=== PATIENT | female | born 1995 | race Caucasian/White ===

== ENCOUNTER → 2022-11-27 09:55 | Outpatient (CLI) | payer OTHER, SELFPAY ==
[2022-11-27 11:36] LABS: Glucose 102 mg/dL (70-100)
[2022-11-27 11:52] LABS: Follicle Stimulating Hormone 5.76 mIU/mL; Luteinizing Hormone 7.21 mIU/mL
[2022-11-29 15:58] LABS: Insulin Level Total 20.3 uIU/mL (2.6-24.9)
== END ==
PROVIDERS: Referring Provider Obstetrics & Gynecology; Visit Provider Obstetrics & Gynecology
DX: E28.2 Polycystic ovarian syndrome (principal)
CPT/HCPCS: 36415; 82947; 83001; 83002; 83525

== ENCOUNTER → 2023-07-07 08:01 | Outpatient (CLI) | payer OTHER, SELFPAY ==
[2023-07-07 08:56] LABS: Add Manual Diff / Slide Review NO; Basophils Absolute Auto 0 /uL (0-100); Basophils Percent Auto 0.6 % (0-2); Eosinophils Absolute Auto 100 /uL (0-450); Eosinophils Percent Auto 1.1 % (2-4); Hematocrit 37.8 % (36-46); Hemoglobin 12.5 g/dL (12.0-16.0); Lymphocytes Absolute Auto 1700 /uL (1100-4500); Lymphocytes Percent Auto 22.4 % (25-40); Mean Corpuscular HGB Conc 33.2 % (30-36); Mean Corpuscular Hemoglobin 25.6 PG (26-34); Monocytes Absolute Auto 400 /uL (0-900); Monocytes Percent Auto 4.9 % (3-14); Neutrophils Absolute Auto 5400 /uL (1500-7000); Platelet Count 220 X10^3/uL (150-400); Red Cell Distribution Width 13.8 % (11.6-14.8); White Blood Cell Count 7.6 X10^3/uL (4.5-11.0)
[2023-07-07 09:05] LABS: Hemoglobin A1C% w Est Avg Glu 5.7 % (4.0-6.0)
[2023-07-07 09:33] LABS: Natera Collection Specimen Collected
[2023-07-08 08:24] LABS: RPR Screen Non Reactive (Non Reactive)
[2023-07-08 09:07] LABS: Varicella IgG Antibody 657 index (Immune >165)
[2023-07-09 04:59] LABS: HIV 1 & 2 Ab/Ag 4th Gen Combo NEGATIVE (NEGATIVE); Hep C Virus Ab w/Reflex Quant NEGATIVE s/c (NEGATIVE); Hepatitis B Surface Antigen NEGATIVE s/c (NEGATIVE); Rubella Antibody IgG 63.3 IU/mL (>15)
== END ==
LOC: LAB 08:06
PROVIDERS: Referring Provider Obstetrics & Gynecology; Visit Provider Obstetrics & Gynecology
DX: Z34.81 Encounter for supervision of other normal pregnancy, first trimester (principal); Z3A.10 10 weeks gestation of pregnancy; E88.819 Insulin resistance, unspecified
CPT/HCPCS: 36415; 80055; 83036; 86787; 86803; 86850; 86900; 86901; 87077; 87086; 87186; 87389

== ENCOUNTER → 2023-08-29 10:22 | Outpatient (CLI) | payer OTHER, SELFPAY | PROVIDERS: Referring Provider Specialist; Visit Provider Specialist | DX: Z34.02 Encounter for supervision of normal first pregnancy, second trimester (principal); Z3A.17 17 weeks gestation of pregnancy | CPT/HCPCS: 36415; 82105 ==

== ENCOUNTER → 2023-09-17 12:47 | Outpatient (CLI) | payer OTHER, SELFPAY ==
--- NOTE | 2023-09-17 13:00 | DI.US.S_ITS ---
PROCEDURE: US OB >= 14 WEEKS FETUS INDICATIONS: 20 Week Anatomy Scan OUTSIDE/PRIOR DATING DATA: Last menstrual period (LMP): 04/22/2023. LMP-based estimated date of delivery (SENDY): 01/27/2024. First dating scan (date and location): 06/29/2023. Estimated date of delivery (SENDY) from first dating scan: 02/02/2024. The calculations are made using the working SENDY of 02/02/2024. TECHNIQUE: Real-time scanning was performed of the fetus, with image documentation and biometric measurements. Endovaginal scanning: No COMPARISON: None. FINDINGS: General: A single living intrauterine gestation is present. Presentation: Breech. Placenta: Placental position is anterior , without previa. Amniotic fluid index: 14.1 cm, normal range is 5-24 cm. Single deepest vertical pocket is 4.1 cm. heart rate: 157 beats per minute. Maternal cervical canal: 4.9 cm long. Normal lower limit is 2.5 cm. biometrics: Biparietal diameter: 4.7 cm, 20 week 2 day Head circumference: 17.5 cm, 20 week 0 day Abdominal circumference: 17.1 cm, 22 week 0 day Femur length: 3.3 cm, 20 week 2 day Clinically estimated gestational age: 20 week 2 day Composite gestational age from present scan: 20 week 5 day Estimated weight and percentile: 397 g, 86 percentile Anatomic survey: Neuro: Ventricles are non-dilated at less than 10 mm. Cisterna magna is normal at 3-11 mm. Cerebellum is normal in size and morphology. Nuchal skin fold: Normal at less than 6 mm between 14-21 weeks gestational age. Face: Nose and lips, facial profile are normal. Spine: No evidence for spina bifida. Heart: 4-chambered heart is present, with normal ventricular outflow tracts. Diaphragm: Diaphragm is intact. Stomach: Left-sided stomach is present. Kidneys: No hydronephrosis. Normal is less than 5 mm in 2nd trimester, less than 7 mm in 3rd trimester. Cord: 3-vessel cord has orthotopic insertion. Bladder: Normal in size. Extremities: All 4 extremities identified. IMPRESSION: Single live intrauterine consistent with 20 week 5 day gestation by ultrasound. Normal anatomic survey. Placental cord insertion 2.2 cm from the placental edge Approved by: Joel Steele M.D. on 09/18/2023 at 17:51
== END ==
LOC: US 12:47
PROVIDERS: Referring Provider Specialist; Visit Provider Specialist
DX: Z34.02 Encounter for supervision of normal first pregnancy, second trimester (principal); Z3A.20 20 weeks gestation of pregnancy
CPT/HCPCS: 76811

== ENCOUNTER → 2023-10-30 11:46 | Outpatient (CLI) | payer OTHER, SELFPAY ==
[2023-10-30 14:34] LABS: Hematocrit 37.2 % (36-46); Hemoglobin 12.5 g/dL (12.0-16.0)
[2023-10-30 15:12] LABS: GTT (PREG) 1 Hour PP 50gm Dose 184 mg/dL (76-139)
== END ==
PROVIDERS: Referring Provider Obstetrics & Gynecology; Visit Provider Obstetrics & Gynecology
DX: Z34.82 Encounter for supervision of other normal pregnancy, second trimester (principal); Z3A.26 26 weeks gestation of pregnancy
CPT/HCPCS: 36415; 82950; 85014; 85018; 86850

== ENCOUNTER → 2023-11-08 09:59 | Outpatient (CLI) | payer OTHER, SELFPAY ==
[2023-11-08 12:00] LABS: Glucose Fasting Gestational 109 mg/dL (76-95)
[2023-11-08 13:13] LABS: Glucose 2 Hour Gest 174 mg/dL (76-155)
[2023-11-08 13:26] LABS: Glucose Tol Interp,Gestational INTERPRETATION
[2023-11-08 13:31] LABS: Glucose 1 Hour Gest 203 mg/dL (76-180)
[2023-11-08 14:58] LABS: Glucose 3 Hour Gest 119 mg/dL (76-140)
== END ==
PROVIDERS: Referring Provider Obstetrics & Gynecology; Visit Provider Obstetrics & Gynecology
DX: Z34.00 Encounter for supervision of normal first pregnancy, unspecified trimester (principal); R73.09 Other abnormal glucose
CPT/HCPCS: 36415; 82951; 82952

== ENCOUNTER → 2023-11-14 12:47 | Outpatient (CLI) | payer OTHER, SELFPAY ==
--- NOTE | 2023-11-15 17:21 | DIAB.GDA ---
Initial Gestational Diabetes Assessment Name: Oscar Gonzalez Date: 11/14/23 Time: 1-215p Dx: Gestational Diabetes Provider: Juana SENDY: 02/02/24 Weeks: 28-29 Oscar presents for initial visit with spouse, Malick. Reports PMH of prediabetes. Most recent Hga1c was 5.7%. Brought meter and supplies for SMBG, and endorses being quite nervous to check BG due to fear of the finger stick. 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 Endorses sugar beverage intake, ie juice, mochas. States they usually keep bread out of the house, but often eat rice and pasta. 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 Diet Recall: 9a: eggs OR sugar cereal x 2c with milk OR bagel with butter 11a: cheese or apple sauce pouch 1245-2p: leftovers OR fast food, ie 2 chicken sliders with small jackman 7-8p: roasted tomato soup with grilled cheese on sourdough OR 1c peas with steak OR 1c rice or more than 1c rice with protein. 10p: dessert, ie cookie or brownie Water 2-3 x 32-42oz inconsistently juice: 8-12oz 0-1x per day Anthropometrics: Ht: 61 Wt: 237# today at OB Prepregnancy wt: 220# Physical Activity: No program Self-Monitoring Blood Glucose: None, provided education and she completed a return demo with success. BG was 143 mg/dl after mocha. Diabetes Medications: None Pertinent Labs: Screen: 184 H ; OGTT: 109 H, 203 H, 174 H, 119 Nutrition Rx: Carbohydrates: Meal: 45-60g lunch and dinner; 30g breakfast Snack: 15-30g Nutrition Diagnosis: Altered nutrition related lab value r/t GDM dx aeb recent OGTT Excessive CHO intake r/t new diagnosis and nutrition knowledge deficit aeb diet recall and elevated BG Physical inactivity r/t stage of change aeb pt report of no program Intervention: This participant was very receptive. Provided appropriate educational handouts. Discussed the following topics: GDM pathophysiology and impact of hyperglycemia on mom and baby Risk for T2DM for mom and baby in the future Ways to reduce risk T2DM Plate Method, meal timing, carb counting, pairing macronutrients and spreading out CHO for better BG management Blood glucose goals (FBG: <95 and 1 hour <140 mg/dL or 2 hour <120 mg/dL); importance of checking 4x per day (FBG and pc) Impact of macronutrients on blood glucose Recommended servings for carbohydrates at meals and snacks Brainstormed appropriate meal plan based on her food preferences Provided education on finger sticks and completed a return demo Role of physical activity and following provider guidelines for safety Goals: Eat q 3-4 hours Check BG 4x per day Avoid sugar beverages Aim for about 1c carbs at lunch and dinner Follow-up: JACK EPPERSON follow-up in one week Daphne Ruggiero RDN, ZEENAT Certified Diabetes Care and Delivery Table Feeder T: [phone] F: [phone] [email or web address] Thank you for this referral
== END ==
LOC: DIET 12:48
PROVIDERS: Referring Provider Obstetrics & Gynecology
DX: O24.419 Gestational diabetes mellitus in pregnancy, unspecified control (principal); Z3A.28 28 weeks gestation of pregnancy; Z71.3 Dietary counseling and surveillance
CPT/HCPCS: 97802

== ENCOUNTER → 2023-11-20 16:00 | Outpatient (CLI) | payer OTHER, SELFPAY ==
--- NOTE | 2023-11-20 16:06 | DIAB.GDFU ---
Addendum entered by Daphne Ruggiero 11/29/23 12:11: Oscar sent BG and all FBG continue above 100mg/dl with a few pc readings above 120mg/dl. Was on vacation, and she wanted to wait to increase insulin; however we did discuss the likely need for additional insulin to manage FBG despite diet indiscretions during vacation. She will increase by 2u q 2 days if FBG are elevated until Sunday when we have our next 1:1 visit. Original Note: Follow-up Gestational Diabetes Assessment Name: Oscar Gonzalez Date: 11/20/23 Time: 405-445p Dx: Gestational Diabetes Provider: Juana SENDY: 02/02/24 Weeks: 29-30 Oscar presents for follow-up visit with spouse, Malick. Reports PMH of prediabetes. Most recent Hga1c was 5.7%. Reports reduced CHO intake and pairing protein with meals. Aiming for 1/2-1c CHO at most meals. A few elevations from high CHO intake, especially on days when she was fasting for an extended time at work and then had high CHO meal after work, ie fast food. Overall, choosing small frequent portions. Despite this, her FBG are significantly elevated. Will message OB about option for insulin. Anthropometrics: Ht: 61 Wt: 237# 10/ Prepregnancy wt: 220# Physical Activity: No program Self-Monitoring Blood Glucose: FBG pretty consistently elevated with 5/6 elevations. Some pc readings elevated up to 149 mg/dl 2 hours after higher CHO intake. States she feels surprised when discussing the need for insulin therapy due to elevated FBG. After researching BG recs online she reports finding a rec for <140mg/dl. We did discuss BG goals last visit, but also reviewed BG recs for both pre and during , and the different recs for pre and post meals. Date Pre Post Pre Post Pre Post 11/14 114 97 105 96 11/15 92 110 128 11/16 104 119 149 11/17 114 107 108 112 11/18 99 138 108 95 11/19 115 95 134 Diabetes Medications: None Pertinent Labs: Screen: 184 H ; OGTT: 109 H, 203 H, 174 H, 119 Nutrition Rx: Carbohydrates: Meal: 45-60g lunch and dinner; 30g breakfast Snack: 15-30g Nutrition Diagnosis: Altered nutrition related lab value r/t GDM dx aeb recent OGTT Excessive CHO intake r/t new diagnosis and nutrition knowledge deficit aeb diet recall and elevated BG- improved/in progress Physical inactivity r/t stage of change aeb pt report of no program- continued Excessive CHO intake r/t long periods of fasting at work resulting in higher CHO intake at dinner aeb pt report and BG results >120 at 2 hour- new Intervention: This participant was very receptive. Provided appropriate educational handouts. Discussed the following topics: BG goals for and non values, goals for those with DM vs without, and goals for fasting vs postprandial ADA recs for FBG of 95 or less and 2 hours of 120 or less Meal timing Starch veggies counting as CHO Factors that impact FBG most, ie sleep and hormones potential for CGM if wanted How CGMs work Insulin types, likelihood of HS insulin low risk for hypoglycemia, but s/s and tx for it Insulin injection demo Role of physical activity and following provider guidelines for safety Goals: Eat q 3-4 hours- improved Check BG 4x per day- 75% met Avoid sugar beverages- met Aim for about 1c carbs at lunch and dinner- met Once rx'd sampler pickup insulin- new Inject HS as rx directs- new Practice rule of 15 prn- new Follow-up: JACK EPPERSON follow-up in one week with BG via messaging and 2 weeks for 1:1 visit. Daphne Ruggiero RDN, ZEENAT Certified Diabetes Care and Animal Humane Agent Supervisor T: [phone] F: [phone] [email or web address] Thank you for this referral
== END ==
PROVIDERS: Referring Provider Obstetrics & Gynecology
DX: O24.419 Gestational diabetes mellitus in pregnancy, unspecified control (principal); Z3A.29 29 weeks gestation of pregnancy; Z71.3 Dietary counseling and surveillance
CPT/HCPCS: G0108

== ENCOUNTER → 2023-12-05 13:52 | Outpatient (CLI) | payer OTHER, SELFPAY ==
--- NOTE | 2023-12-05 14:06 | DIAB.GDFU ---
Addendum entered by Daphne Ruggiero 12/19/23 13:37: Been in touch with pt over the last couple weeks adjusting HS insulin according to FBG. All pc readings mostly in goal and FBG continues above 100mg/dl. Currently at 26u NPH HS with FBG of 100, 104mg/dl. Will increase by 15% to 30u tonight. Follow-up with this RD and OB tomorrow. Original Note: Follow-up Gestational Diabetes Assessment Name: Oscar Gonzalez Date: 12/05/23 Time: 2-230p Dx: Gestational Diabetes Provider: Juana SENDY: 02/02/24 Weeks: 31-32 Oscar presents for follow-up visit with spouse, Malick. Reports PMH of prediabetes. Most recent Hga1c was 5.7%. In review of her food journal, seems to be balancing CHO and protein portions appropriately. BG postprandial continue to be in goal most meals, even with some higher/simple CHO intake, ie cereal or soda. Has questions about satiety and eating adequately during . Asks if she should force herself to eat if not hungry in evening. Reports recent illness and lack of sleep contributing to elevated BG, which is why she had only increased to 14u, however seems she would benefit from 14u HS NPH, supported by OB (visit today). Endorses injecting in back of arms only and sometimes in the same space. Spouse helps with injections. Seems hesitant to increase dose, and states this is more due to feeling bummed that she needs more insulin. Endorses some stinging after insulin injections, keeps in-use pen at room temp. Anthropometrics: Ht: 61 Wt: 239# OB visit today 12/04 237# 11/13 Prepregnancy wt: 220# Physical Activity: No program. Was walking more during vacation. Has treadmill, interested in starting more movement. Self-Monitoring Blood Glucose: Checking FBG and 2 hour pc. 4/ elevated FBG and 2 elevated pc lunch readings. All other pc readings in goal. Date Pre Post Pre Post Pre Post 11/28 110 76 80 117 11/29 94 76 109 102 11/30 82 118 101 118 12/01 110 105 147 12/02 112 120 104 94 12/03 92 85 126 12/04 106 98 Diabetes Medications: 12u NPH HS Pertinent Labs: Screen: 184 H ; OGTT: 109 H, 203 H, 174 H, 119 Nutrition Rx: Carbohydrates: Meal: 45-60g lunch and dinner; 30g breakfast Snack: 15-30g Nutrition Diagnosis: Altered nutrition related lab value r/t GDM dx aeb recent OGTT Physical inactivity r/t stage of change aeb pt report of no program- continued Excessive CHO intake r/t long periods of fasting at work resulting in higher CHO intake at dinner aeb pt report and BG results >120 at 2 hour- improved Intervention: This participant was very receptive. Provided appropriate educational handouts. Discussed the following topics: BG review and need for additional HS insulin Titration over the next few days to meet goal of FBG <95 mg/dl Rotation of insulin injection sites Impact of illness and sleep disturbances on FBG Insulin timing and action Role of hormones on FBG and addressed her concerns for increased insulin needs nutrition and early satiety strategies Avoid forcing self to eat Try protein snacks such as yogurt or smoothies with pro Adequate nutrition for mom and baby Choosing complex CHO and avoiding simple carb options Role of physical activity and following provider guidelines for safety Goals: Once rx'd sisal picker insulin- met Inject HS as rx directs- met Practice rule of 15 prn- continue Increase to 14u tonight- new If FBG >95 over 2-3 days, increase by 2u- new Rotate injection sites- new Treadmill 2x per week x 10 mins- new Follow-up: JACK EPPERSON follow-up in one week via messaging and 2 weeks 1:1 Daphne Ruggiero RDN, ZEENAT Certified Diabetes Care and Truck Engine Technician T: [phone] F: [phone] [email or web address] Thank you for this referral
== END ==
PROVIDERS: Referring Provider Obstetrics & Gynecology
DX: O24.414 Gestational diabetes mellitus in pregnancy, insulin controlled (principal); Z3A.31 31 weeks gestation of pregnancy; Z71.3 Dietary counseling and surveillance
CPT/HCPCS: 97803

== ENCOUNTER → 2023-12-20 08:59 | Outpatient (CLI) | payer OTHER, SELFPAY ==
--- NOTE | 2023-12-20 10:59 | DIAB.MNTFU ---
Follow-up Diabetes Medical Nutrition Therapy Assessment Name: Oscar Gonzalez Date: 12/20/23 Time: 9-10a Dx: Type II Diabetes Provider: Juana SENDY: 02/02/24 Weeks: 33-34 Oscar presents for follow-up visit with spouse, Malick. Reports PMH of prediabetes. Most recent Hga1c was 5.7%. In review of her food journal and recent BG she has been eating out more frequently, higher CHO portions, which has rendered higher BG results. Previously her pc readings were in range and her diet was more balanced. Her FBG are still a challenge. Plans to see OB today. Food journal indicates high CHO intake at some breakfast with full bagel, lunch with grilled chx sandwich and fries, and dinners ie 3 pieces of pizza. Reports increased busy time at work and less time cooking, grocery shopping, and preparing for the week. Also, endorses juice at times to have baby move and frequent sweetened coffee mocha intake. States she thinks she can change her diet to better manage her BG. Declines CGm today. There are missing data pts in her BG log. worries about short travel for him, and her risks of preeclampsia or others with GDM while he is gone. Anthropometrics: Ht: 61 Wt: 239# OB visit 12/04 237# 11/13 Prepregnancy wt: 220# Physical Activity: No program. Less active at work lately due to more paperwork. Self-Monitoring Blood Glucose: Checking FBG and 2 hour pc. 7/7 elevated FBG and 4 elevated pc lunch readings. Missing quite a bit of pc data this week. Date Pre Post Pre Post Pre Post 12/13 111 94 139 12/14 118 130 12/15 120 120 12/16 102 117 127 12/17 100 83 114 12/18 104 133 130 12/19 111 Diabetes Medications: 30u NPH HS Pertinent Labs: Screen: 184 H ; OGTT: 109 H, 203 H, 174 H, 119 Nutrition Rx: Carbohydrates: Meal: 45-60g lunch and dinner; 30g breakfast Snack: 15-30g Nutrition Diagnosis: Altered nutrition related lab value r/t GDM dx aeb recent OGTT Physical inactivity r/t stage of change and increased sedentary time at work aeb pt report - continued Excessive CHO intake r/t long periods of fasting at work and increased eating out aeb pt report, diet recall and BG results >120 at 2 hour- new Intervention: This participant was very receptive. Provided appropriate educational handouts. Discussed the following topics: BG review and goals Potential for MDI if pc numbers do not improve GDM risks and s/s of preeclampsia Review of diet: macro pairing, meal timing, portions recs, impact of sugar beverages Discuss titration of insulin with OB today Rotation of insulin injection sites. Options for site injection. Physical activity impact on BG CGm benefits Role of physical activity and following provider guidelines for safety Goals: Increase to 30u tonight (12/19/23)- met If FBG >95 over 2-3 days, increase by 2u- met Rotate injection sites- met Treadmill 2x per week x 10 mins- not met Avoid any sugar beverage- new Avoid dessert- new Try to move 10 mins after eat- new Discuss insulin recs with OB- new Check BG 4x per day- new Follow-up: JACK EPPERSON follow-up in 1 week. Hoping with diet changes her BG will improve. If they do not, rec low threshold for additional insulin injections. Plans to see OB today. RD has messaged OB regarding this visit today and state of her BG. Daphne Ruggiero RDN, CDCES Certified Diabetes Care and Ceiling Insulation Blower P: [phone] Thank you for this referral
== END ==
PROVIDERS: Referring Provider Obstetrics & Gynecology
DX: O24.414 Gestational diabetes mellitus in pregnancy, insulin controlled (principal); Z3A.33 33 weeks gestation of pregnancy; Z71.3 Dietary counseling and surveillance
CPT/HCPCS: 97803

== ENCOUNTER 2023-12-20 16:31 | Observation (INO) | payer OTHER, SELFPAY ==
--- NOTE | 2023-12-20 20:29 | P.TNLD_ITS ---
Visit Information Visit Information Date of evaluation: 12/20/23 Primary OB Provider: Isa Arias Reason for Evaluation: Yes non-stress test non-stress test reason: diabetes (gestational on insulin) PFSH Medical History (Updated 12/05/23 @ 10:16 by Leanne Abad MD) Foot pain Chicken pox Surgical History (Updated 07/01/23 @ 17:50 by Isa Arias MD) Anesthesia [place] teeth removed (~01/2016) Status post breast reduction (~05/2021) Family History (Updated 06/25/23 @ 11:13 by Irina Lentz RN) Mother Lupus Osteoarthritis Grandfather Skin cancer Grandmother Heart disease Grandmother Dementia Grandmother Dementia Grandfather Stroke Social History marital status: number of children: 0 household members: spouse lives independently: Yes caregiver/support person: No housing: house pets and animals: Yes (2 cats, manages litter box) education level: college (batchleor's degree) 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) current occupational exposures/hazards: No brady/taoism: Quaker special brady needs: No travel history: recent (domestic only) seatbelt use: always water heater temp set < 120 deg: Yes working smoke detector in home: Yes fire extinguisher in home: Yes carbon monox detector in home: Yes firearms in home: Yes firearms unloaded and locked: Yes do you feel safe at home: Yes Smoking Status: Never smoker second hand exposure: No alcohol intake: former (very rarely when not ) substance use type: does not use during the past year weight has: increased > 10 lbs well-balanced diet: about half the time daily servings fruits/ve-4 caffeine: Yes (minimal since becoming ) Type(s) of exercise: walking Evaluation Evaluation Baseline heart rate: 135 Variability: Moderate (11-25) monitor accelerations: Present Monitor Decelerations: Absent Contraction Frequency (minutes): 0 Category of Tracing: Reactive Diagnosis, Plan/Disposition Plan/Disposition Plan: Assessment: at 33+5 GDM A2 Reactive NST Plan: D/C to home F/U 1 week Warning signs reviewed OB Disposition: home
== END 2023-12-20 17:20 | disposition home or self-care (01) ==
LOC: LABOR 16:32
PROVIDERS: Admitting Provider Obstetrics & Gynecology; Referring Provider Obstetrics & Gynecology; Visit Provider Obstetrics & Gynecology
DX: O24.414 Gestational diabetes mellitus in pregnancy, insulin controlled (principal); Z3A.33 33 weeks gestation of pregnancy; Z71.3 Dietary counseling and surveillance
CPT/HCPCS: 59025; 97803; G0378; G0379

== ENCOUNTER → 2023-12-28 08:00 | Outpatient (CLI) | payer OTHER, SELFPAY ==
--- NOTE | 2023-12-28 08:20 | DIAB.GDFU ---
Addendum entered by Daphne Ruggiero 01/10/24 09:27: Pt emailed RD with recent BG indicating some FBG in the 90-100s, plans to increase insulin by 2u tonight. Also frequent dinner elevations. Encouraged lower CHO intake at dinner. Original Note: Follow-up Gestational Diabetes Assessment Name: Oscar Gonzalez Date: 12/28/23 Time: 8 Dx: Gestational Diabetes Provider: Juana SENDY: 02/02/24 Weeks: 35 Oscar presents for follow-up visit with spouse, Malick. Reports PMH of prediabetes. Most recent Hga1c was 5.7%. No juice recently. Avoiding sugar beverages in general. Avoiding desserts as well. Noticed remarkable elevation after dessert one night. Reviewed food journal. Carb intake more in goal range this visit, which has resulted in much improved BG since last visit. Often veggies, lean protein and 1/2-1c CHO. Reports anxieties about delivery, induction v c section. Worries that induction could be unsuccessful and would need a c section anyway. Endorses some worry that she is now considered high risk with insulin therapy. Leaning toward formula feeding baby. Feels that would put feeding responsibilities solely on her. Anthropometrics: Ht: 61 Wt: 247# OB 12/19 239# OB 12/04 237# 11/13 Prepregnancy wt: 220# Physical Activity: Moving more in the evening, mostly ADLs, but more active. Self-Monitoring Blood Glucose: Checking FBG and 2 hour pc. Improved FBG recently. Improved pc readings, but still some elevations. Date Pre Post Pre Post Pre Post 12/21 93 79 101 130 12/22 109 128 75 97 12/23 95 83 12/24 106 90 99 114 12/25 110 89 84 129 12/26 91 89 135 12/27 93 Diabetes Medications: 36u NPH HS Pertinent Labs: Screen: 184 H ; OGTT: 109 H, 203 H, 174 H, 119 Nutrition Rx: Carbohydrates: Meal: 45-60g lunch and dinner; 30g breakfast Snack: 15-30g Nutrition Diagnosis: Altered nutrition related lab value r/t GDM dx aeb recent OGTT Physical inactivity r/t stage of change and increased sedentary time at work aeb pt report - continued/improved Excessive CHO intake r/t long periods of fasting at work and increased eating out aeb pt report, diet recall and BG results >120 at 2 hour- improved Intervention: This participant was very receptive. Provided appropriate educational handouts. Discussed the following topics: BG review and trends Discussed why insulin therapy may make her high risk and the absolute need for insulin therapy this Discussed potential for GDM with future pregnancies Encouraged her to discuss further anxieties about delivery with OB Reviewed nutrition recs Can have 1c CHO at lunch and dinner Pairing CHO and protein Insulin titration recs Physical activity impact on BG Recent blood sugar results and impact of food and hormones Review of macronutrient recommendations during Benefits, resources, and nutrition for Encouraged her to choose feeding plan that is best for her and her family Did review pro/con to nursing vs formula feeding and discussed what that may look like for her and her goals recommendations for nutrition and physical activity recommendations for T2DM risk reduction - OGTT at 6-12 weeks - Checking blood sugars twice per week (goal: fasting <100 mg/dL and 2 hour pc <140 mg/dL) until 6 week check-up Set SMART goals Goals: Avoid any sugar beverage- met Avoid dessert- met Try to move 10 mins after eat- improved Discuss insulin recs with OB- met Check BG 4x per day- met Message RD in one week BG results- new Keep up great nutrition changes- new Increase HS insulin by 2u q 2-3 days if FBG >95mg/dl- continued Follow-up: JACK EPPERSON follow-up in one week via messaging and then prn. Daphne Ruggiero RDN, ZEENAT Certified Diabetes Care and Reel And Rewinder Operator T: [phone] F: [phone] [email or web address] Thank you for this referral
== END ==
PROVIDERS: PCP Obstetrics & Gynecology; Referring Provider Obstetrics & Gynecology
DX: O24.414 Gestational diabetes mellitus in pregnancy, insulin controlled (principal); Z3A.35 35 weeks gestation of pregnancy; Z71.3 Dietary counseling and surveillance
CPT/HCPCS: 97803

== ENCOUNTER 2023-12-28 09:21 | Outpatient (CLI) | payer OTHER, SELFPAY | END 2023-12-28 10:10 | disposition home or self-care (01) | LOC: LABOR 09:36 → OB 12-31 11:43 | PROVIDERS: PCP Obstetrics & Gynecology; Referring Provider Obstetrics & Gynecology; Visit Provider Obstetrics & Gynecology | DX: O24.913 Unspecified diabetes mellitus in pregnancy, third trimester (principal); Z3A.34 34 weeks gestation of pregnancy; Z79.4 Long term (current) use of insulin | CPT/HCPCS: 59025; 97803; G0378; G0379 ==

== ENCOUNTER 2024-01-04 10:02 | Observation (INO) | payer OTHER, SELFPAY | END 2024-01-04 12:40 | disposition home or self-care (01) | PROVIDERS: Admitting Provider Obstetrics & Gynecology; PCP Obstetrics & Gynecology; Referring Provider Obstetrics & Gynecology; Visit Provider Obstetrics & Gynecology | DX: O24.913 Unspecified diabetes mellitus in pregnancy, third trimester (principal); Z3A.35 35 weeks gestation of pregnancy; Z79.4 Long term (current) use of insulin | CPT/HCPCS: 59025; 76815; G0378; G0379 ==

== ENCOUNTER 2024-01-10 14:04 | Outpatient (CLI) | payer OTHER, SELFPAY | END 2024-01-10 14:35 | disposition home or self-care (01) | LOC: LABOR 14:24 → OB 01-14 08:47 | PROVIDERS: PCP Obstetrics & Gynecology; Referring Provider Obstetrics & Gynecology; Visit Provider Obstetrics & Gynecology | DX: O24.913 Unspecified diabetes mellitus in pregnancy, third trimester (principal); Z3A.36 36 weeks gestation of pregnancy; Z79.4 Long term (current) use of insulin; Z3A.31 31 weeks gestation of pregnancy | CPT/HCPCS: 59025; 87653; G0378; G0379 ==

== ENCOUNTER → 2024-01-10 15:26 | Outpatient (CLI) | payer OTHER, SELFPAY ==
[2024-01-11 15:15] LABS: Strep Grp B PCR POS for Grp B Strep
== END ==
PROVIDERS: PCP Obstetrics & Gynecology; Visit Provider Obstetrics & Gynecology
DX: Z34.83 Encounter for supervision of other normal pregnancy, third trimester (principal); Z3A.36 36 weeks gestation of pregnancy
CPT/HCPCS: 87653

== ENCOUNTER 2024-01-16 14:12 | Outpatient (CLI) | payer OTHER, SELFPAY | END 2024-01-16 15:10 | disposition home or self-care (01) | LOC: LABOR 14:23 → OB 01-17 11:38 | PROVIDERS: Referring Provider Obstetrics & Gynecology; Visit Provider Obstetrics & Gynecology | DX: O24.913 Unspecified diabetes mellitus in pregnancy, third trimester (principal); Z3A.37 37 weeks gestation of pregnancy; Z79.4 Long term (current) use of insulin | CPT/HCPCS: 59025; G0378; G0379 ==

== ENCOUNTER 2024-01-20 19:49 | Inpatient (IN) | payer OTHER, SELFPAY ==
[2024-01-20 20:00] VITALS: BP 128/61
[2024-01-20 20:57] LABS: Add Manual Diff / Slide Review NO; Basophils Absolute Auto 100 /uL (0-100); Basophils Percent Auto 1.3 % (0-2); Eosinophils Absolute Auto 100 /uL (0-450); Hematocrit 34.6 % (36-46); Hemoglobin 11.4 g/dL (12.0-16.0); Lymphocytes Absolute Auto 2800 /uL (1100-4500); Lymphocytes Percent Auto 24.2 % (25-40); Mean Corpuscular Hemoglobin 25.1 PG (26-34); Mean Corpuscular Volume 75.9 fL (80-100); Monocytes Absolute Auto 900 /uL (0-900); Monocytes Percent Auto 7.4 % (3-14); Neutrophils Absolute Auto 7700 /uL (1500-7000); Neutrophils Percent Auto 66.1 % (50-75); Platelet Count 150 X10^3/uL (150-400); Red Blood Cell Count 4.56 X10^6/uL (4.0-5.2); Red Cell Distribution Width 14.1 % (11.6-14.8); White Blood Cell Count 11.6 X10^3/uL (4.5-11.0)
[2024-01-20] MEDS: miSOPROStoL 25 MCG TABLET 50 MCG PO (21:25)
[2024-01-20] MEDS: INSULIN NPH 100 UNIT/ML 10ML VIAL 22 UNIT SUBCUT (22:54)
[2024-01-21] MEDS: miSOPROStoL 25 MCG TABLET 50 MCG PO ×4 (01:22→15:04)
[2024-01-21] MEDS: ACETAMINOPHEN 325 MG TABLET 650 MG PO (03:25)
--- NOTE | 2024-01-21 08:42 | PM.OBHP.IH.1 ---
OB HPI Date/Time Date of admission: 01/20/24 Date Patient Seen: 01/21/24 Time Patient Seen: 07:45 History of Present Condition Chief complaint: Induction SENDY Calculator Estimated Delivery Date Method Current WG Current Estimate 02/02/24 Ultrasound #1 38w 3d Other Estimates 01/27/24 LMP (Certain) 39w 2d Estimated Gestational Age (weeks): 38+2 : 1 Para: 0 Narrative: Received 3 doses of misoprostol overnight. The last one was at 0550 orally. Having some contractions. Cervical ripening/induction of labor due to GDM A2, on 44U of insulin care: good care, initiated at week # (8), number of visits (11) and pounds weight gain (1) Dating criteria OB: LMP confirmed by 1st trimester US Ultrasounds: normal 1st trimester US and normal mid trimester US Obstetrical complications: gestational diabetes (on 44 U of NPH at hs) Medical complications OB: none Narrative: s/p breast reduction GBS pos Indications Indication for induction OB: gestational diabetes (on 44 U of insulin) Preadmission Labs Last OB Lab Results: Blood Type O Negative 01/20/24 20:43 Antibody Screen Negative 01/20/24 20:43 Hct 34.6 % (36-46) L 01/20/24 20:43 Hgb 11.4 g/dL (12.0-16.0) L 01/20/24 20:43 Hep Bs Antigen Negative s/c (NEGATIVE) 07/07/23 08:33 Hepatitis C Antibody Negative s/c (NEGATIVE) 07/07/23 08:33 Rubella Antibody 63.3 IU/mL (>15) 07/07/23 08:33 VZV IgG Antibody 657 index (Immune >165) 07/07/23 08:33 Glucose 1 Hr 50 gm 184 mg/dL (76-139) H 10/30/23 13:05 Hemoglobin A1c 5.7 % (4.0-6.0) 07/07/23 08:33 Group B Strep (PCR) Pos for grp b strep H 01/10/24 15:26 -: Chlamydia screen: negative, Gonorrhea screen: negative and Urine: negative -: PAP smear: Normal Genetic Screens: Cell-free DNA: Normal (normal male) and Alpha-fetoprotein: Normal External Labs -: Urine: negative Prior (ies) Hx # Term Pregnancies: 0 Evaluation Evaluation Baseline heart rate: 130 Variability: Moderate (11-25) monitor accelerations: Present Monitor Decelerations: Absent Contraction Frequency (minutes): 3 Uterine Contraction Intensity: Mild Status: Category l Dilation (cm): 1 Effacement (%): 75 station: -2 Position of cervix: mid Consistency: soft PFSH Medical History (Updated 12/30/23 @ 19:28 by Isa Arias MD) Foot pain Chicken pox Surgical History (Updated 07/01/23 @ 17:50 by Isa Arias MD) Anesthesia [place] teeth removed (~01/2016) Status post breast reduction (~05/2021) Family History (Updated 06/25/23 @ 11:13 by Irina Lentz RN) Mother Lupus Osteoarthritis Grandfather Skin cancer Grandmother Heart disease Grandmother Dementia Grandmother Dementia Grandfather Stroke Social History marital status: number of children: 0 household members: spouse lives independently: Yes caregiver/support person: No housing: house pets and animals: Yes (2 cats, manages litter box) education level: college (batchleor's degree) 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) current occupational exposures/hazards: No brady/buddhist: Uats[place] special brady needs: No travel history: recent (domestic only) seatbelt use: always water heater temp set < 120 deg: Yes working smoke detector in home: Yes fire extinguisher in home: Yes carbon monox detector in home: Yes firearms in home: Yes firearms unloaded and locked: Yes do you feel safe at home: Yes Smoking Status: Never smoker second hand exposure: No alcohol intake: former (very rarely when not ) substance use type: does not use during the past year weight has: increased > 10 lbs well-balanced diet: about half the time daily servings fruits/ve-4 caffeine: Yes (minimal since becoming ) Type(s) of exercise: walking Meds Home Medications and Allergies Home Medications Medication Instructions Recorded Confirmed Type vitamin-ferrous sulfate tab PO 06/25/23 01/16/24 History 27 mg iron-folic acid 0.8 mg tablet ondansetron 4 mg disintegrating 4 mg PO Q6H PRN nausea and 08/29/23 01/16/24 Rx tablet vomiting #20 tabs omeprazole 20 mg capsule,delayed 20 mg PO DAILY #60 caps 10/10/23 01/16/24 Rx release blood sugar diagnostic (Blood #100 ea 11/08/23 01/16/24 Rx Glucose Test strips) blood-glucose meter (Blood Glucose #1 ea 11/08/23 01/16/24 Rx Monitoring kit) lancets #100 ea 11/08/23 01/16/24 Rx pen needle, diabetic 29 gauge x #100 ea 11/21/23 01/16/24 Rx 1/2 (Ultra-Thin II Insulin Pen [place]) RSVPreF3 antigen-AS01E 0.5 ml IM ONCE #1 ea 12/20/23 01/16/24 Rx adjuvant(PF) 120 mcg/0.5 mL IM suspension, kit insulin NPH isoph U-100 human 100 36 unit (0.36 mL) SUBCUT .hs #15 mL 01/01/24 01/16/24 Rx unit/mL (3 mL) subcutaneous pen (Humulin N NPH U-100 Insulin KwikPen) Allergies Allergy/AdvReac Type Severity Reaction Status Date / Time nickel Allergy Mild Rash Uncoded 01/16/24 13:10 OB Exam Narrative Exam Narrative: Generally: Patient is sitting up in bed, no acute distress Lungs: Clear to auscultation bilaterally Cardiovascular: Regular rate and rhythm Fundal height: 40 cm Estimated weight: 8-1/2 lb Extremities: 1+ edema, negative clonus Objective Labs 01/20/24 20:43 Labs: Laboratory Results - last 24 hr 01/20/24 20:43 WBC 11.6 H RBC 4.56 Hgb 11.4 L Hct 34.6 L MCV 75.9 L MCH 25.1 L MCHC 33.0 RDW 14.1 Plt Count 150 Neut % (Auto) 66.1 Lymph % (Auto) 24.2 L [place] % (Auto) 7.4 Eos % (Auto) 1.0 L Baso % (Auto) 1.3 Neut # (Auto) 7700 H Lymph # (Auto) 2800 [place] # (Auto) 900 Eos # (Auto) 100 Baso # (Auto) 100 Blood Type O Negative Antibody Screen Negative Assessment and Plan Assessment and Plan Assessment and Plan narrative: Assessment: 28-year-old 1 para 0 at 38-,2/7 weeks gestation with GDM, A2 Status post 3 doses of misoprostol overnight Still with unfavorable cervix GBS positive Plan: We will check fasting and 2 hour postprandial blood sugars We will continue cervical ripening through the day today We will re-evaluate in early evening for overnight plans We will wait for active labor before starting GBS prophylaxis Time-Based Coding :: [TOTAL MINUTES] spent with patient and on the chart (including review of chart, obtaining history, exam, reviewing outside data, placing orders, documenting exam and treatment plan, and counseling patient) on [DATE].
--- NOTE | 2024-01-21 12:45 | PM.OBPNLAB ---
Date/Time Date Patient Seen: 01/21/24 Time Patient Seen: 12:45 Pain Control Pain control: tolerating well Comments: S/P 4 doses of Misoprostol. Last dose at 1130 am. Pelvic Exam Dilation (cm): 1 Effacement (%): 75 station: -2 Contractions Contractions on admission: none Monitor mode: External Contraction frequency (min): 5 Contraction pattern: Irregular Contraction intensity: Mild Status status: Category l Heart Rate Baseline: 130 Monitor Accelerations: Present Monitor Decelerations: Absent Monitor Variability: Moderate Assessment and Plan Assessment: induction ongoing Plan: continuous present management Comments: Will continue cervical ripening and re-evaluate in the early evening for overnight plans Hold on GBS prophylaxis for now
[2024-01-21] MEDS: DINOPROSTONE VAG (CERVIDIL) 10 MG VAG (21:31)
[2024-01-21] MEDS: INSULIN NPH 100 UNIT/ML 10ML VIAL 22 UNIT SUBCUT (22:39)
[2024-01-22] MEDS: LACTATED RINGERS 1,000 ML 100 ML IV (10:56)
[2024-01-22] MEDS: OXYTOCIN PREMIX 30 UNIT/500 ML PLAST..BAG IV (10:56)
--- NOTE | 2024-01-22 11:14 | PM.OBPNLAB ---
Date/Time Date Patient Seen: 01/21/24 Time Patient Seen: 17:30 Pain Control Pain control: tolerating well Pelvic Exam Dilation (cm): 1 Effacement (%): 75 station: -2 Contractions Contractions on admission: none Monitor mode: External Contraction frequency (min): 4 Contraction pattern: Irregular Contraction intensity: Mild Status status: Category l Heart Rate Baseline: 135 Monitor Accelerations: Present Monitor Decelerations: Absent Monitor Variability: Moderate Assessment and Plan Assessment: induction ongoing Comments: Plan: We will try Cervidil cervical ripening overnight We will re-evaluate cervix in the morning for possible Pitocin
--- NOTE | 2024-01-22 11:15 | PM.OBPNLAB ---
Date/Time Date Patient Seen: 01/22/24 Time Patient Seen: 11:15 Pain Control Pain control: tolerating well Pelvic Exam Dilation (cm): 3 Effacement (%): 75 station: -2 Amniotic membrane status: Intact Contractions Contractions on admission: none Monitor mode: External Contraction frequency (min): 4 Contraction pattern: Irregular Contraction intensity: Mild Status status: Category l Heart Rate Baseline: 145 Monitor Accelerations: Present Monitor Decelerations: Absent Monitor Variability: Moderate Assessment and Plan Assessment: induction ongoing Comments: Assessment: 28-year-old 1 para 0 at 38-,3/7 weeks gestation with a favorable cervix GDM, A2 blood sugars have been stable Plan: We will begin Pitocin augmentation We will start GBS prophylaxis Expected management to spontaneous vaginal delivery
[2024-01-22] MEDS: AMPICILLIN 2,000 MG in SODIUM CHLORIDE 0.9% 100 ML 200 MG IV ×2 (11:31→11:42)
[2024-01-22] MEDS: AMPICILLIN 1,000 MG in SODIUM CHLORIDE 0.9% 100 ML 200 MG IV ×2 (15:46→19:47)
--- NOTE | 2024-01-22 17:54 | PM.OBPNLAB ---
Date/Time Date Patient Seen: 01/22/24 Time Patient Seen: 17:54 Pain Control Pain control: tolerating well Comments: BS's 80-124 Pelvic Exam Effacement (%): 75 station: -2 Amniotic membrane status: Intact Comments: Deferred vaginal exam. When patient stood up from ball, gross rupture of membranes of copious clear fluid Contractions Contractions on admission: none Monitor mode: External Pitocin rate (mU/min): 12 Contraction frequency (min): 3 Contraction duration (min): 1 Contraction pattern: Regular Contraction intensity: Moderate Status status: Category l Heart Rate Baseline: 125 Monitor Accelerations: Present Monitor Decelerations: Absent Monitor Variability: Moderate Assessment and Plan Assessment: induction ongoing Comments: Plan: Will defer VE now that SROM Epidural as needed
--- NOTE | 2024-01-22 22:07 | PM.OBPNLAB ---
Date/Time Date Patient Seen: 01/22/24 Time Patient Seen: 22:07 Pain Control Pain control: tolerating well Comments: BS 85 Pelvic Exam Effacement (%): 75 station: -2 Amniotic membrane status: Ruptured Comments: Pt ruptured spontaneously upon rising from ball Contractions Contractions on admission: none Monitor mode: External Pitocin rate (mU/min): 10 Contraction frequency (min): 2 Contraction pattern: Regular Contraction intensity: Moderate Status status: Category l Heart Rate Baseline: 140 Monitor Accelerations: Present Monitor Decelerations: Absent Monitor Variability: Moderate Assessment and Plan Assessment: induction ongoing Comments: Keep ctx's 3 min apart Epidural as needed for pain Expectant management to
[2024-01-22] MEDS: LACTATED RINGERS 1,000 ML 125 ML IV (23:11)
[2024-01-23] MEDS: AMPICILLIN 1,000 MG in SODIUM CHLORIDE 0.9% 100 ML 200 MG IV (00:01)
[2024-01-23] MEDS: CITRIC ACID/SODIUM CITRATE 15 ML SOLUTION 30 ML PO (14:07)
[2024-01-23] MEDS: CEFAZOLIN 2 GM/100 ML PREMIX 100 ML IV (14:50)
--- NOTE | 2024-01-23 14:52 | SUR.OPER ---
16 FR AVALOS PLACED AT 1452 BY Ilsa MIRZA RN
[2024-01-23] MEDS: ACETAMINOPHEN IV 1,000 MG/100 ML VIAL 400 MG IV (15:13)
--- NOTE | 2024-01-23 15:13 | SUR.OPER ---
1511 BABY BOY BORN
--- NOTE | 2024-01-23 15:14 | SUR.OPER ---
1514 BABY BOY CORD BLOOD PLACED IN VIALS AND GIVEN TO L&D NURSE
--- NOTE | 2024-01-23 15:16 | SUR.OPER ---
1516 PLACENTA OBTAINED AND LABELED GIVEN TO L&D NURSE FOR TRANSPORT
--- NOTE | 2024-01-23 15:25 | SUR.OPER ---
SCORE AT 1 MINUTE AFTER WAS 8, AT 5 MINUTES AFTER WAS 9 PER L&D BABY NURSE
[2024-01-23 15:54] VITALS: BP 110/59; PULSE 94; RESP 15; TEMP 36.4; O2SAT 98
--- NOTE | 2024-01-23 15:56 | PM.OBCS.1 ---
Operative Date/Time/Diagnoses Date of procedure: 01/23/24 Time of procedure: 15:56 Pre-op diagnosis: 38+3 weeks gestation Gestational diabetes, A2 Patient desires C section in labor Post-op diagnosis: same Procedure & Clinicians Procedure: Primary low transverse C section Same procedure as scheduled: Yes Indications: 28 year old at 38+4 wks gestation in middle of induction of labor Desires primary C section Surgeon: Isa Qiunn Yes if Unassisted: No Certified Nursing Assistant: Susi Haines Reason for Certified Nursing Assistant: The botany laboratory assistant was necessary to retract when entry into the abdomen uterus. She assisted with delivery of the infant with fundal pressure. She assisted with closure with retraction, clipping of suture, and closure of the contralateral fascia. Anesthesia Type: Epidural Operative Notes Findings: Live male infant in the OP presentation Normal uterus, tubes and ovaries Closure Type: primary Specimen(s): cord blood and placenta Intraoperative meds administered: Ketorolac and Pitocin Applied: Catheter (To continuous drainage) Estimated Blood Loss (mL): 500 Blood products transfused: none Procedure in detail: After informed consent was obtained, the patient was taken to the operating room where she was placed in the dorsal supine position with a leftward tilt. After epidural anesthesia was found to be adequate, she was prepped and draped in the usual sterile fashion. A time-out was performed. heart tones were obtained and were 140s. After epidural analgesia was found to be adequate, a Pfannenstiel skin incision was made 2 fingerbreadths above the pubic symphysis and carried through to the underlying layer of fascia. The fascia was nicked in the midline and the incision extended bilaterally with the Goldsmith scissors. The superior aspect of the fascial incision was grasped with the Claudia clamps, elevated, and the underlying rectus muscles were dissected off sharply and bluntly. Attention was then turned to the inferior aspect of this incision which in a similar fashion was grasped with Claudia clamps, elevated, and underlying rectus muscles dissected off sharply and bluntly. Rectus muscles were in the midline. Peritoneum was identified, grasped 2 2 hemostats, and entered sharply with the Metzenbaum scissors. This incision was extended superiorly and inferiorly with good visualization of the bladder. The bladder blade was inserted the vesicouterine peritoneum was grasped with a pickup, entered sharply with the Metzenbaum scissors, and extended bilaterally with the Metzenbaum scissors. Viral swab was created digitally. Bladder blade was reinserted. The lower uterine segment is incised in a transverse fashion with the scalpel. Upon entering the amniotic sac, there is a small amount of clear amniotic fluid. The incision was extended bluntly. The infant's head was delivered without difficulty. The nose and mouth were suctioned with bulb suctioned. The remainder of the body delivered without difficulty and was wrapped in a warm blanket. The cord was double clamped and cut after 1 minute. Cord bloods were obtained. Pitocin was given in the IV fluids. The placenta was delivered by expression. The uterus was cleared of all clots and debris. The uterine incision was closed with 1. Chromic in a running interlocking fashion. Second layer of the same suture was used for an imbricating layer. Hemostasis was achieved. The tubes and ovaries were examined and found to be normal. The gutters were cleared of all clots and debris. The bladder flap was reapproximated using 2-0 Vicryl in a running fashion. The parietal peritoneum was closed using 2-0 Vicryl in a running fashion. The fascia was reapproximated using 0 Vicryl in a running fashion. The subcutaneous layer was reapproximated using 3-0 Vicryl with simple interrupted sutures. The skin was closed with 4-0 Monocryl in a subcuticular fashion. Steri-Strips and an Aquacel dressing were placed. The uterus was expressed of a small amount of old blood. Sponge, lap, and instrument counts were correct x2. Patient tolerated the procedure well, and was taken to PACU in a stable condition. Complications: none Baby 1: Delivery Date: 01/23/24 Delivery Time: 15:11 Infant Gender: Male Presentation: vertex Position: Occiput Posterior Placental Delivery Description: Expressed Cord Vessel Description: 3 Vessels score (1 min): 8 score (5 min): 9 weight: 8 lb 14.5 oz Post-operative Condition: stable Disposition: PACU Aftercare: routine postop
[2024-01-23 15:58] VITALS: BP 99/61; PULSE 89; RESP 13; O2SAT 98
[2024-01-23 16:03] VITALS: BP 102/62; PULSE 86; RESP 11; O2SAT 97
[2024-01-23 16:08] VITALS: BP 96/58; PULSE 83; RESP 12; TEMP 37.1; O2SAT 98
[2024-01-23 16:15] VITALS: BP 100/66; PULSE 81; RESP 12; O2SAT 97
[2024-01-23] MEDS: ONDANSETRON 4 MG/2 ML INJ IV (19:49)
[2024-01-23] MEDS: ACETAMINOPHEN 325 MG TABLET 650 MG PO (21:37)
[2024-01-23] MEDS: KETOROLAC 30 MG/ML VIAL IV (21:37)
[2024-01-24] MEDS: KETOROLAC 30 MG/ML VIAL IV ×2 (03:41→11:58)
[2024-01-24] MEDS: ACETAMINOPHEN 325 MG TABLET 650 MG PO ×3 (03:41→18:59)
[2024-01-24 06:46] LABS: Add Manual Diff / Slide Review NO; Basophils Absolute Auto 0 /uL (0-100); Basophils Percent Auto 0.5 % (0-2); Eosinophils Absolute Auto 0 /uL (0-450); Hematocrit 28.7 % (36-46); Hemoglobin 9.5 g/dL (12.0-16.0); Lymphocytes Absolute Auto 1600 /uL (1100-4500); Lymphocytes Percent Auto 16.6 % (25-40); Mean Corpuscular Hemoglobin 25.2 PG (26-34); Mean Corpuscular Volume 76.4 fL (80-100); Monocytes Absolute Auto 1000 /uL (0-900); Monocytes Percent Auto 10.7 % (3-14); Neutrophils Absolute Auto 6900 /uL (1500-7000); Neutrophils Percent Auto 72.2 % (50-75); Platelet Count 119 X10^3/uL (150-400); Red Blood Cell Count 3.75 X10^6/uL (4.0-5.2); Red Cell Distribution Width 14.1 % (11.6-14.8); White Blood Cell Count 9.5 X10^3/uL (4.5-11.0)
[2024-01-24] MEDS: DOCUSATE 100 MG CAPSULE PO (08:53)
[2024-01-24] MEDS: PRENATAL VIT,CALC/IRON/FOLIC 1 TABLET 1 TAB PO (08:53)
--- NOTE | 2024-01-24 15:24 | PM.OBPN.1 ---
Subjective - OB Subjective Patient comments: incisional pain, tolerating diet, flatus present and other (voided without the catheter) baby status: doing well Date Patient Seen: 01/24/24 Time Patient Seen: 12:15 Interval history: Patient complains of some incisional pain. She is voided without catheter. No nausea or vomiting. She has tolerating a diet. She is ambulating independently. Exam Vital Signs (past 8 hours): Oxygen Delivery Method Room Air Narrative Exam Narrative: Generally: A well-developed, well-nourished female, no acute distress Lungs: Clear to auscultation bilaterally Cardiovascular: Regular rate and rhythm Fundus: Firm at U -1 Incision: Clean dry and intact with Aquacel dressing Abdomen: Soft, appropriately tender Extremities: Negative Homans, 1+ edema Objective Labs 01/24/24 06:28 Labs: Laboratory Results - last 24 hr 01/24/24 06:28 WBC 9.5 RBC 3.75 L Hgb 9.5 L Hct 28.7 L MCV 76.4 L MCH 25.2 L MCHC 33.0 RDW 14.1 Plt Count 119 L Neut % (Auto) 72.2 Lymph % (Auto) 16.6 L [place] % (Auto) 10.7 Eos % (Auto) 0.0 L Baso % (Auto) 0.5 Neut # (Auto) 6900 Lymph # (Auto) 1600 [place] # (Auto) 1000 H Eos # (Auto) 0 Baso # (Auto) 0 Assessment & Plan Plan day: 1 plan OB: routine postop care Time-Based Coding :: [TOTAL MINUTES] spent with patient and on the chart (including review of chart, obtaining history, exam, reviewing outside data, placing orders, documenting exam and treatment plan, and counseling patient) on [DATE].
[2024-01-24] MEDS: IBUPROFEN 600 MG TABLET PO (19:00)
[2024-01-24] MEDS: RHO(D) IMMUNE GLOBULIN 1,500 UNIT SYRINGE 1500 UNIT IM (23:47)
[2024-01-25] MEDS: IBUPROFEN 600 MG TABLET PO ×2 (00:45→11:59)
[2024-01-25] MEDS: ACETAMINOPHEN 325 MG TABLET 650 MG PO ×3 (00:46→14:12)
[2024-01-25] MEDS: OXYCODONE IR 5 MG TABLET PO ×3 (06:56→12:02)
[2024-01-25] MEDS: DOCUSATE 100 MG CAPSULE PO (11:59)
[2024-01-25] MEDS: PRENATAL VIT,CALC/IRON/FOLIC 1 TABLET 1 TAB PO (12:00)
[2024-01-25 19:01] VITALS: BP 100/66; PULSE 81; RESP 12; TEMP 37.1
--- NOTE | 2024-02-03 18:28 | PM.OBDS.1 ---
Discharge Providers Provider Date of admission: 01/20/24 19:49 Discharge Date: 01/25/24 Primary care physician: Doctor Latesha MD Consults: 01/20/24 20:06 Consult to Anesthesiology Urgent Comment: Consulting Provider: Anesthesiologist Reason for consultation: Epidural Has provider been notified: No 01/23/24 17:28 Consult to Senior Managing Director Routine Comment: Discharge provider: Isa Arias MD Summary Hospital Course Date Patient Seen: 01/25/24 Time Patient Seen: 07:45 Diagnoses: 38-3/7 weeks gestation Gestational diabetes, requiring insulin Cervical ripening with misoprostol Induction of labor with Pitocin Artificial rupture of membranes Primary low-transverse section Hospital Course: Patient is a 28-year-old 1 para 1 who presented on 01 20 2024 for cervical ripening prior to induction of labor. Induction was performed due to gestational diabetes requiring insulin. She received 5 doses total of misoprostol. On the morning of January 21, 2024 her cervix was still unfavorable she was continued on cervical ripening. On the morning of January 22, 2024 she was started on Pitocin. Artificial rupture of membranes was performed in the evening. There was clear amniotic fluid. Overnight the patient made a decision that she wanted to proceed with a primary low transverse section. On January 23, 2024 she underwent a primary low transverse section without complication. Her course was unremarkable. She was discharged home on postop day # 2 on January 25, 2024. She was tolerating a diet. Pain was well controlled. She was voiding without the catheter. She was ambulating independently. No nausea or vomiting. Peripartum Data Delivery Method: Section Laceration Description: None Episiotomy description: None Procedures: Misoprostol cervical ripening Pitocin induction of labor Artificial rupture of membranes Epidural analgesia Primary low transverse section complications: none 1: Gender: Male Disposition of : home Status at Discharge Cognitive/behavioral status at discharge: oriented Functional status at discharge: independent ambulation Overall status at discharge: patient is progressing back to baseline Time Spent with Patient Time attestation: Total time spent providing and/or coordinating discharge services: Time spent: Less than 30 minutes Objective Labs 01/24/24 06:28 Exam Vital Signs (past 8 hours): Oxygen Delivery Method Room Air Narrative Exam Narrative: Generally: Patient is sitting up in bed, holding infant, no acute distress Lungs: Clear to auscultation bilaterally Cardiovascular: Regular rate and rhythm Fundus: Firm at U -1 Incision: Clean dry and intact with Aquacel dressing Extremities: 1+ edema, negative Homans Discharge Plan Discharge Plan Patient Disposition: Home Provider Discharge Comment: Call with fever, chills, redness or drainage around the incision, or bleeding vaginally more than a pad in an hour Ibuprofen 600 mg every 6 hours Tylenol 650 mg every 6 hours as needed Continue vitamins Stool softeners until bowel returned to normal Discharge orders & Medications Prescriptions: New oxycodone 5 mg tablet 5 mg PO Q6H PRN (Reason: pain) Qty: 30 0RF ibuprofen 600 mg tablet 600 mg PO Q6H PRN (Reason: pain or cramping) Qty: 30 2RF docusate sodium [Colace] 100 mg capsule 200 mg PO DAILY Qty: 20 0RF Continued vit-ferrous sulfat-FA 27 mg iron- 0.8 mg tablet PO Discontinued omeprazole 20 mg capsule,delayed release(DR/EC) 20 mg PO DAILY Qty: 60 1RF Humulin N NPH Insulin KwikPen 100 unit/mL (3 mL) insulin pen 36 unit SUBCUT .hs Qty: 15 3RF Rx Instructions: 36 units of NPH at bedtime. ondansetron 4 mg tablet,disintegrating 4 mg PO Q6H PRN (Reason: nausea and vomiting) Qty: 20 2RF RSVPreF3 antigen-AS01E (PF) 120 mcg/0.5 mL suspension for reconstitution 0.5 ml IM ONCE Qty: 1 0RF No Action (DME) blood-glucose meter [Blood Glucose Monitoring] Kit See Rx Instructions .ROUTE .MEDSUPPLY Qty: 1 0RF Rx Instructions: please chk AM fasting blood sugar, and 2 hour after brkfst, lunch and dinner (DME) lancets Misc See Rx Instructions .ROUTE .MEDSUPPLY Qty: 100 3RF Rx Instructions: please chk AM fasting blood sugar, and 2 hour after brkfst, lunch and dinner (DME) Blood Glucose Test Strip See Rx Instructions .ROUTE .MEDSUPPLY Qty: 100 2RF Rx Instructions: Please check am fasting BS, and 2 hours after breakfast/lunch/dinner (DME) pen needle, diabetic [Ultra-Thin II Ins Pen [place]] 29 gauge x 1/2 needle See Rx Instructions .Route Qty: 100 0RF Rx Instructions: As directed Follow up/Referrals: Isa Arias MD [Physician] - 1 Week (Follow up with Dr. Arias on Sunday January 28, 2024 @ 1:45pm for your incision check, then; Followup with Dr. Arias on SundayMarch 12 @ 1:45pm for your 6 week appointment.) Diet/Activity/Treatments Diet: Regular Activity: no heavy lifting nothing in the vagina Skin/Wound/Dressing Care Report to your healthcare provider any signs of infection, such as:: chills, fever, increased pain, unusual drainage and unusual redness Dressing: Do not remove Visit Report/Discharge Packet Instructions: DI for , DI for Prescription Opioid Use Stand Alone Forms: Patient Portal/API, Stroke Signs & Symptoms Discharge Data Primary Care Provider: Miscellaneous,Doctor
== END 2024-01-25 17:10 | disposition home or self-care (01) | DRG 788 ==
PROVIDERS: Admitting Provider Family Medicine; Referring Provider Family Medicine; Visit Provider Obstetrics & Gynecology
PROC: 10D00Z1 Extraction of Products of Conception, Low, Open Approach (ICD-10-PCS; CPT 59514; principal; 2024-01-23 14:00)
DX: O24.424 Gestational diabetes mellitus in childbirth, insulin controlled (principal); O99.824 Streptococcus B carrier state complicating childbirth; Z3A.38 38 weeks gestation of pregnancy; Z37.0 Single live birth; Z79.4 Long term (current) use of insulin
CPT/HCPCS: 36415; 59050; 59200; 82962; 85025; 85461; 86850; 86900; 86901; G0379; J0134; J0290; J0690; J1100; J1885; J2274; J2405; J2590; J2790